=== PATIENT | male | born 1950 | race Caucasian/White ===

== ENCOUNTER 2020-06-01 11:41 | Emergency (ER) | payer MEDICARE ==
[~2020-06-01] VITALS: Ht 182.9 cm; Wt 113.3 kg
[2020-06-01] MEDS ORDERED: ESCITALOPRAM OX10 MG PO (12:56)
[2020-06-01] MEDS ORDERED: ZOLPIDEM10 M1 PO (12:56)
[2020-06-01] MEDS ORDERED: METOPROL TAR100 MG PO (12:58)
[2020-06-01] MEDS ORDERED: OXYCODONE PO (12:58)
[2020-06-01] MEDS ORDERED: ACETA PO (12:58)
[2020-06-01 12:59] LABS: HEMATOCRIT 39.9 % (39.0-50.0); HEMOGLOBIN 13.6 g/dl (14.0-18.0); IMMATURE GRANULOCYTES 0.4 % (0.0-5.0); MEAN CELL VOLUME 112.7 fL CALC (80.0-100.0); MEAN CORPUSCULAR HGB 38.4 pG CALC (26.0-32.0); MEAN CORPUSCULAR HGB CONC 34.1 g/dL CAL (32.0-36.0); NEUT# 5.67 thou/uL (1.82-7.42); RED BLOOD COUNT 3.54 mill/uL (4.70-6.10); RED CELL DISTRI WIDTH 16.2 % (11.5-15.5)
[2020-06-01 13:29] LABS: ALKALINE PHOSPHATASE 66 u/l (38-126); ANION GAP 13 (6-22 (CALC)); BILIRUBIN, TOTAL 0.6 mg/dL (0.0-1.4); BUN 16 mg/dL (8-23); BUN/CREATININE RATIO 21 (12-20 (CALC)); CARBON DIOXIDE 24 mmol/l (22-30); CHLORIDE 108 mmol/l (95-108); CREATININE 0.8 mg/dL (0.7-1.3); GFR > 60 ML/MIN (>=60 (CALC)); GFR FOR AFR.AMER. > 60 ML/MIN (>=60 (CALC)); POTASSIUM 4.8 mmol/l (3.5-5.1); SGOT/AST 29 u/l (19-48); SODIUM 141 mmol/l (137-146); TOTAL PROTEIN 6.5 g/dL (6.3-8.2)
[2020-06-01] MEDS ORDERED: XARELTO10 MG PO (13:29)
[2020-06-01] MEDS ORDERED: BUSPIRONE5 MG PO (13:30)
[2020-06-01] MEDS ORDERED: ALPRAZOLAM0.5 MG PO (13:30)
[2020-06-01 13:52] VITALS: BP 121/80
== END 2020-06-01 13:54 | disposition left against medical advice (07) ==
LOC: ED 11:41
PROVIDERS: Family Medicine
PROC: 2W3BXYZ Immobilization of Left Upper Arm using Other Device (ICD-10-PCS; principal; 2020-06-01)
DX: S42.202A Unspecified fracture of upper end of left humerus, initial encounter for closed fracture (principal); S22.42XA Multiple fractures of ribs, left side, initial encounter for closed fracture; S00.83XA Contusion of other part of head, initial encounter; R55 Syncope and collapse; I48.91 Unspecified atrial fibrillation; I10 Essential (primary) hypertension; W18.39XA Other fall on same level, initial encounter; Y92.009 Unspecified place in unspecified non-institutional (private) residence as the place of occurrence of the external cause; Z79.01 Long term (current) use of anticoagulants; Z96.612 Presence of left artificial shoulder joint; Z91.19 Patient's noncompliance with other medical treatment and regimen